=== PATIENT | female | born 1985 | race Caucasian/White ===

== ENCOUNTER 2020-11-27 16:05 | Emergency (ER) | payer OTHER ==
[~2020-11-27 16:05] MED LIST: COLACE 100MG C100 MG PO; IBUPROFEN600 MG PO; LORTAB 5-325 M1 EACH PO; PRENATAL VITAM1 EAC8 PO; ZANTAC150 MG PO
[2020-11-27 17:25] LABS: HEMOGLOBIN 14.4 gm/dl (12.3-15.3); RED BLOOD COUNT 4.57 M/UL (4.00-5.10); WHITE BLOOD COUNT 9.3 K/UL (4.5-11.0)
[2020-11-27 17:58] LABS: BUN/CREATININE RATIO 22 (0-10)
[2020-11-27] MEDS ORDERED: PROTONIX40 MG PO (20:04)
== END 2020-11-27 20:22 | disposition home or self-care (01) ==
LOC: ER1 16:05
PROVIDERS: Emergency Medicine
DX: R10.13 Epigastric pain (principal); R11.0 Nausea
CPT/HCPCS: 80053; 81001; 82550; 82553; 83690; 83874; 84484; 84703; 85025; 93005; 99284; Q9967

== ENCOUNTER → 2021-07-28 17:06 | Emergency (ER) | payer OTHER ==
[~2021-07-28 17:06] MED LIST changes: +LOPERAMIDE2 M1 PO; +PROTONIX40 MG PO; +ZOFRAN 4 MG TAB4 MG PO
== END | disposition left against medical advice (07) ==
LOC: ER1 17:06
DX: Z53.21 Procedure and treatment not carried out due to patient leaving prior to being seen by health care provider (principal)

== ENCOUNTER 2021-07-29 09:41 | Emergency (ER) | payer OTHER ==
[~2021-07-29 09:41] MED LIST changes: -LOPERAMIDE2 M1 PO; -ZOFRAN 4 MG TAB4 MG PO
[2021-07-29] MEDS ORDERED: ZOFRAN 4 MG TAB4 MG PO (12:00)
[2021-07-29] MEDS ORDERED: LOPERAMIDE2 M1 PO (12:00)
== END 2021-07-29 12:08 | disposition home or self-care (01) ==
LOC: ER1 09:41
DX: R11.2 Nausea with vomiting, unspecified (principal); R19.7 Diarrhea, unspecified
CPT/HCPCS: 96374; 99283; J0780